=== PATIENT | male | born 1970 | race Caucasian/White ===

== ENCOUNTER 2017-10-12 19:12 | Emergency (ER) | payer BC ==
--- NOTE | 2017-10-12 19:14 | PDOC ---
History of Present Illness - General History Source: Patient, Family - History of Present Illness Initial Comments: 10/12/17 20:01 Patient is a 47 year old male with significant past medical history of diabetes , hypertension, and peripheral vascular disease that presents to the ED with 4 days of bilateral arm numbness. The patient reports the numbness to be intermittent and originating in the right arm. He describes the numbness as a pulsating feeling radiating down to his fingertips. The patient reports the numbness to worsen at night while lying down. The patient also reports pain in the right arm near the elbow that is made worse with strenuous lifting. The patient reports intermittent headaches for the past few days. The patient also reports intermittent diarrhea for approximately 1-2 weeks. Patient denies blurred vision, double vision, ringing in ears, difficulty swallowing. He denies chest pain, palpitations or shortness of breath. He denies recent fever, chills, nausea or vomiting. Allergies: NKA Past surgical history: None reported. Social History: Social drinker. Reports quitting smoking approx. 15 years ago ( 2 packs a day). Denies recreational drug use. Primary Care Physician: Dr. Keita <Balwinder Price - Last Filed: 10/12/17 20:01> <Jonathan Chaves - Last Filed: 10/13/17 06:29> - General Chief Complaint: Pain, Acute Stated Complaint: NUMBNESS TO BOTH ARMS Time Seen by Provider: 10/12/17 19:14 Past History <Balwinder Price - Last Filed: 10/12/17 20:01> <Jonathan Chaves - Last Filed: 10/13/17 06:29> - Past Medical History Allergies/Adverse Reactions: Allergies Allergy/AdvReac Type Severity Reaction Status Date / Time No Known Allergies Allergy Verified 10/12/17 19:15 Home Medications: Ambulatory Orders Metformin HCl 850 mg PO TID 10/12/17 Olmesartan/Hydrochlorothiazide [Olmesartan-Hctz 40-25 mg Tab] 1 each PO DAILY Review of Systems - Review of Systems Comments:: 10/12/17 20:02 GENERAL/CONSTITUTIONAL: No fever or chills. HEAD, EYES, EARS, NOSE AND THROAT: No change in vision. No ear pain or discharge. No sore throat. CARDIOVASCULAR: No chest pain or shortness of breath. RESPIRATORY: No cough, wheezing, or hemoptysis. GASTROINTESTINAL: +Diarrhea. No nausea, vomiting, or constipation. GENITOURINARY: No dysuria, frequency, or change in urination. MUSCULOSKELETAL: +Right arm pain. No neck or back pain. SKIN: No rash NEUROLOGIC: +Bilateral arm weakness. No headache, vertigo, loss of consciousness. ENDOCRINE: No increased thirst. No abnormal weight change. HEMATOLOGIC/LYMPHATIC: No anemia, easy bleeding, or history of blood clots. ALLERGIC/IMMUNOLOGIC: No hives or skin allergy. <Balwinder Price - Last Filed: 10/12/17 20:01> *Physical Exam - Vital Signs Last Vital Signs Temp Pulse Resp BP Pulse Ox 87 16 127/76 99 10/12/17 19:21 10/12/17 19:21 10/12/17 19:21 10/12/17 19:21 - Physical Exam Comments: 10/12/17 20:04 GENERAL: Awake, alert, and fully oriented, in no acute distress HEAD: No signs of trauma EYES: PERRLA, EOMI, sclera anicteric, conjunctiva clear ENT: Auricles normal inspection, hearing grossly normal, nares patent, oropharynx clear without exudates. Moist mucosa NECK: Normal ROM, supple, no lymphadenopathy, JVD, or masses LUNGS: Breath sounds equal, clear to auscultation bilaterally. No wheezes, and no crackles HEART: Regular rate and rhythm, normal S1 and S2, no murmurs, rubs or gallops ABDOMEN: Soft, nontender, normoactive bowel sounds. No guarding, no rebound. No masses EXTREMITIES: Normal range of motion, no edema. No clubbing or cyanosis. No cords, erythema, or tenderness NEUROLOGICAL: Cranial nerves II through XII grossly intact. Normal speech, normal gait SKIN: Warm, Dry, normal turgor, no rashes or lesions noted. <Balwinder Price - Last Filed: 10/12/17 20:01> ED Treatment Course - ADDITIONAL ORDERS Additional order review: Laboratory Results 10/12/17 19:35 POC Glucometer [id number] 10/12/17 19:35 POC Glucometer [id number] <Balwinder Price - Last Filed: 10/12/17 20:01> Medical Decision Making - Medical Decision Making 10/13/17 06:26 sensation intact except for a few areas on LUE with decreased cold perception most likely peripheral neuropathy secondary to diabetes glycemic control dw patient pcp fu <Jonathan Chaves - Last Filed: 10/13/17 06:29> *DC/Admit/Observation/Transfer - Attestations Scribe Attestion: 10/12/17 20:04 Documentation prepared by Balwinder Price, acting as medical artist for Jonathan Chaves MD. <Balwinder Price - Last Filed: 10/12/17 20:01> <Jonathan Chaves - Last Filed: 10/13/17 06:29> Diagnosis at time of Disposition: Peripheral neuropathy Qualifiers: Peripheral neuropathy type: polyneuropathy, other Qualified Code(s): G62.89 - Other specified polyneuropathies - Discharge Dispostion Disposition: HOME Condition at time of disposition: Stable - Referrals Referrals: Cris Ren MD [Primary Care Provider] - Call tomorrow - Patient Instructions Printed Discharge Instructions: DI for Diabetic Neuropathy - Post Discharge Activity Forms/Work/School Notes: Back to Work
[2017-10-12 19:25] VITALS: BP 127/76; PULSE 87; BMI 38.2
[2017-10-12] MEDS ORDERED: HEMOQUE TEST 1 EACH EACH ONE (19:26)
== END 2017-10-12 20:04 | disposition home or self-care (01) ==
LOC: FER 19:12
DX: G62.89 Other specified polyneuropathies (principal); I10 Essential (primary) hypertension; E11.9 Type 2 diabetes mellitus without complications; I73.9 Peripheral vascular disease, unspecified; Z79.84 Long term (current) use of oral hypoglycemic drugs
CPT/HCPCS: 99281-25

== ENCOUNTER 2018-04-26 06:41 | Emergency (ER) | payer BC ==
[2018-04-26 06:53] VITALS: BP 135/86; PULSE 87; TEMP 98.6; BMI 37.4
[2018-04-26] MEDS ORDERED: ACETAMINOPHEN 1000 MG/100 ML VIAL (NON FORMULARY) IVPB ONE (07:21)
--- NOTE | 2018-04-26 07:21 | PDOC ---
History of Present Illness - General Chief Complaint: Pain, Acute Stated Complaint: RLQ PAIN SINCE LAST NIGHT Time Seen by Provider: 04/26/18 06:53 - History of Present Illness Initial Comments: 04/26/18 08:24 Pt presents to the ED complaining of R flank pain that began early this morning. Pain is 5/10 in severity, non radiating, not accompanied by nausea or vomiting. Patient denies fever or dysuria. Pain is made slightly worse with twisting movements of the torso. Patient was tolerating Po and having normal bowel movements yesterday. Past History - Past Medical History Allergies/Adverse Reactions: Allergies Allergy/AdvReac Type Severity Reaction Status Date / Time No Known Allergies Allergy Verified 04/26/18 06:44 Home Medications: Ambulatory Orders Olmesartan/Hydrochlorothiazide [Olmesartan-Hctz 40-25 mg Tab] 1 each PO DAILY Janumet 50-1,000 mg Tablet 50 - 1,000 mg PO DAILY 04/26/18 COPD: No Diabetes: Yes HTN: Yes - Suicide/Smoking/Psychosocial Hx Smoking History: Former smoker Have you smoked in the past 12 months: No If you are a former smoker, when did you quit?: 16 Information on smoking cessation initiated: No Hx Alcohol Use: No Drug/Substance Use Hx: No Substance Use Type: None Review of Systems - Review of Systems Able to Perform ROS?: Yes Is the patient limited [place]ymra[place] proficient: No Constitutional: No: Symptoms Reported, See HPI, Chills, Diaphoresis, Fever, Loss of Appetite, Malaise, Night Sweats, Weakness, Weight Stable, Unintentional Wgt. Loss, Unexplained wgt Loss, Other HEENTM: No: Symptoms Reported, See HPI, Eye Pain, Blurred Vision, Tearing, Recent change in vision, Double Vision, Cataracts, Ear Pain, Ocular Prothesis, Ear Discharge, Nose Pain, Nose Congestion, Tinnitus, Nose Bleeding, Hearing Loss , Throat Pain, Throat Swelling, Mouth Pain, Dental Problems, Difficulty Swallowing, Mouth Swelling, Other Respiratory: No: Symptoms reported, See HPI, Cough, Orthopnea, Shortness of Breath, SOB with Exertion, SOB at Rest, Stridor, Wheezing, Productive cough, Hemoptysis, Other Cardiac (ROS): No: Symptoms Reported, See HPI, Chest Pain, Edema, Irregular Heart Rate, Lightheadedness, Palpitations, Syncope, Chest Tightness, Other ABD/GI: Yes: Other (abdominal pain). No: Symptoms Reported, See HPI, Abdominal Distended, Abd. Pain w/ defecation, Blood Streaked Bowels, Constipated, Diarrhea , Difficulty Swallowing, Nausea, Poor Appetite, Poor Fluid Intake, Rectal Bleeding, Vomiting, Indigestion, Abdominal cramping, Tarry Stools : No: Symptoms Reported, See HPI, Burning, Dysuria, Discharge, Frequency, Flank Pain, Hematuria, Incontinence, Pain, Urgency, Testicular Mass, Testicular Swelling, Lesions, Testicular Pain, Other Musculoskeletal: No: Symptoms Reported, See HPI, Back Pain, Gout, Joint Pain, Joint Swelling, Muscle Pain, Muscle Weakness, Neck Pain, Joint Stiffness, Other Integumentary: No: Symptoms Reported, See HPI, Bruising, Change in Color, Change in Hair/Nails, Dryness, Erythema, Flushing, Lesions, Lumps, Pallor, Pruritus, Rash, Sweating, Other Neurological: No: Symptoms reported, See HPI, Headache, Numbness, Paresthesia, Pre-Existing Deficit, Seizure, Tingling, Tremors, Weakness, Unsteady Gait, Ataxia, Dizziness, Other *Physical Exam - Vital Signs Last Vital Signs Temp Pulse Resp BP Pulse Ox 98.6 F 87 16 135/86 98 04/26/18 06:49 04/26/18 06:49 04/26/18 06:49 04/26/18 06:49 04/26/18 06:49 - Physical Exam General Appearance: Yes: Nourished, Appropriately Dressed. No: Apparent Distress, Disheveled, Mild Distress, Moderate Distress, Severe Distress, Alcohol on Breath, Intoxicated, Cachetic, Obese, Thin, Other HEENT: positive: Normal ENT Inspection, Normal Voice Neck: positive: Supple Respiratory/Chest: positive: Lungs Clear, Normal Breath Sounds. negative: Chest Tender, Respiratory Distress, Accessory Muscle Use, Labored Respiration, Rapid RR, Decreased Breath Sounds, Paradoxal Breathing, Crackles, Rales, Rhonchi , Stridor, Wheezing, Hyperresonant, Dullness, Plerual Rub, Other Cardiovascular: positive: Regular Rhythm, Regular Rate, S1, S2 Gastrointestinal/Abdominal: positive: Flat, Soft. negative: Tender (abdomen is non tender to deep palpation), Organomegaly, Pulsatile Mass, Increased Bowel Sounds, Decreased BS, Protuberent, Distended, Guarding, Rebound, Tenderness, Hernia, Mass, Hepatomegaly, Spleenomegaly, Other Musculoskeletal: positive: Normal Inspection. negative: CVA Tenderness, CVA Tenderness (R), CVA Tenderness (L), Decreased Range of Motion, Muscle Spasm, Vertebral Tenderness, Other Extremity: positive: Normal Inspection, Normal Range of Motion Integumentary: positive: Normal Color, Dry, Warm ED Treatment Course - LABORATORY CBC & Chemistry Diagram: 04/26/18 07:30 04/26/18 07:30 Medical Decision Making - Medical Decision Making 04/26/18 08:41 Pt presents to the ED with mild R flank pain, without fever or dysuria. Abdomen is non tender. Differential includes muscular pain, nephrolithiasis, less likely diverticulitis or appendicitis. Will check labs and UA, give pain control with tylenol and reassess. Will consider discharge home if labs are negative and pain is improved. 04/26/18 08:42 *DC/Admit/Observation/Transfer Diagnosis at time of Disposition: Flank pain - Discharge Dispostion Disposition: HOME Condition at time of disposition: Good Decision to Admit order: No - Referrals Referrals: Cris Ren MD [Primary Care Provider] - - Patient Instructions Printed Discharge Instructions: DI for Kidney Stones Additional Instructions: your pain may be caused by a kidney stone. You should return to the ED for fever, nausea and vomiting, pain that does not resolve within two days. Also return for worsening pain or pain with urination, or any other new or worsening symptoms. MAke sure that you follow up with your doctor within 4 days. You can take advil ( up to 4 pills every 8 hours) for pain. - Post Discharge Activity
[2018-04-26] MEDS ORDERED: ACETAMINOPHEN INJECTION 100 ML IVPB ONE (07:30)
[2018-04-26 09:02] LABS: BASO % 0.6 % (0-2.0); HEMATOCRIT 45.4 % (35.4-49); HEMOGLOBIN 15.3 GM/dL (11.7-16.9); LYMPH % 14.5 % (8-40); MCH 31.7 pg (25.7-33.7); MCHC 33.7 g/dl (32.0-35.9); MEAN CELL VOLUME 93.8 fl (80-96); MEAN PLT VOLUME 9.2 fl (7.5-11.1); MONO % 8.3 % (3.8-10.2); NEUT % 73.6 % (42.8-82.8); PLATELET COUNT 217 K/MM3 (134-434); RBC 4.84 M/mm3 (4.00-5.60); WHITE BLOOD COUNT 10.2 K/mm3 (4.0-10.0)
[2018-04-26 09:24] LABS: URINE APPEARANCE CLEAR; URINE BILIRUBIN NEGATIVE (<2.0 mg/dL); URINE BLOOD 3+ (NEGATIVE); URINE COLOR YELLOW; URINE GLUCOSE (UA) 2+ (NEGATIVE); URINE KETONE NEGATIVE (NEGATIVE); URINE LEUK ESTERASE NEGATIVE (NEGATIVE); URINE NITRITE NEGATIVE (NEGATIVE); URINE PROTEIN NEGATIVE (NEGATIVE); URINE UROBILINOGEN NEGATIVE mg/dL (0.2-1.0)
[2018-04-26 09:25] LABS: EPI CELLS RARE /HPF (FEW); URINE HYALINE CAST 1 /lpf; URINE MUCUS RARE
[2018-04-26 10:17] LABS: BLOOD UREA NITROGEN 23 mg/dl (7-18); GLUCOSE,RANDOM 195 mg/dl (74-106)
[2018-04-26 10:18] LABS: ALBUMIN 3.7 g/dl (3.5-5.0); ANION GAP 9 (8-16); BILIRUBIN,TOTAL 0.3 mg/dl (0.2-1.0); CALCIUM 8.6 mg/dl (8.4-10.2); CHLORIDE 102 mmol/L (98-107); CO2 28 mmol/L (22-28); SGOT/AST 24 U/L (10-42); SGPT/ALT 44 U/L (10-40); SODIUM 139 mmol/L (136-145); TOT PROT 6.7 g/dl (6.4-8.3)
[2018-04-26 10:19] LABS: ALK PHOS 125 U/L (32-92)
== END 2018-04-26 10:28 | disposition home or self-care (01) ==
LOC: FER 06:41
PROC: 3E033NZ Introduction of Analgesics, Hypnotics, Sedatives into Peripheral Vein, Percutaneous Approach (ICD-10-PCS; principal; 2018-04-26)
DX: R10.31 Right lower quadrant pain (principal)
CPT/HCPCS: 36415; 80053; 81003; 81015; 85025; 99281-25; J0131

== ENCOUNTER 2024-02-23 04:14 | Day surgery (SDC) | payer OTHER ==
[2024-02-18 15:53] VITALS: BMI 34.9
[2024-02-23] MEDS ORDERED: MIDAZOLAM HCL 2 MG/2 ML SINGLE DOSE VIAL ONE (14:20)
[2024-02-23] MEDS ORDERED: FENTANYL CITRATE/PF 50 MCG/ML VIAL ONE ×2 (14:20→14:22)
[2024-02-23] MEDS ORDERED: ONDANSETRON 4 MG/2 ML VIAL ONE (14:23)
[2024-02-23] MEDS ORDERED: KETOROLAC TROMETHAMINE 30 MG/1 ML VIAL ONE (14:29)
[2024-02-23 14:55] VITALS: RESP 20
[2024-02-23 16:50] VITALS: BP 127/85; PULSE 79; TEMP 97.3
== END 2024-02-23 16:35 | disposition home or self-care (01) ==
LOC: JASU-SURG 04:14
PROVIDERS: ATTEND Urology
PROC: 0TF4XZZ Fragmentation in Left Kidney Pelvis, External Approach (ICD-10-PCS; principal; 2024-02-23 15:00)
DX: N20.0 Calculus of kidney (principal)
CPT/HCPCS: 82962